=== PATIENT | male | born 1945 | race Caucasian/White ===

== ENCOUNTER 2019-09-08 07:27 | Emergency (ER) | payer MEDICARE ==
[~2019-09-08] VITALS: Ht 188 cm; Wt 82.5 kg
--- OUTSIDE RECORDS SUMMARY | ~2019-09-08 | XMS | Encounter Summary ---
Demographics + + + | Address | [address] | | | [place] [address] | + + + | Home Phone | | + + + | Preferred Language | Unknown | + + + | Marital Status | | + + + | Confucianism Affiliation | Unknown | + + + | Race | Unknown | + + + | Ethnic Group | Unknown | + + + Author + + + | Author | [facility] | | | and [place] | + + + | Organization | [facility] | | | and [place] | + + + | Address | Unknown | + + + | Phone | Unavailable | + + + Support + + +---------+ + | Name | Relationship | Address | Phone | + + +---------+ + | Mehnaz Cornelius | ECON | Unknown | | + + +---------+ + Care Team Providers + +------+ + | Care Parole Director Name | Role | Phone | + +------+ + | No, Physician | PCP | Unavailable | + +------+ + Reason for Visit Auth/Cert +--------+--------+ + + + + | Status | Reason | Specialty | Diagnoses / | Referred By | Referred To | | | | | Procedures | Contact | Contact | +--------+--------+ + + + + | | | | Diagnoses | | | | | | | Acute pain | | | | | | | Fall, | | | | | | | initial | | | | | | | encounter | | | | | | | Fracture of | | | | | | | left hip, | | | | | | | closed, | | | | | | | initial | | | | | | | encounter | | | | | | | ([facility]) Other | | | | | | | closed | | | | | | | fracture of | | | | | | | shaft of | | | | | | | left femur, | | | | | | | initial | | | | | | | encounter | | | | | | | ([facility]) | | | | | | | hip fracture | | | | | | | | | | | | | | Procedures | | | | | | | ORIF IM | | | | | | | RODDING | | | | | | | FEMORAL | | | | | | | TROCHANTERIC | | | | | | | NAIL | | | +--------+--------+ + + + + Encounter Details +--------+ + + + + | Date | Type | Department | Care Team | Description | +--------+ + + + + | 08/30/ | Anesthesia | [facility] | Pako Glasgow MD | | | 2016 | Event | [facility] | [address] | | | | | [address] | [place] | | | | | [place] | [address] | | | | | [address] | [phone] | | | | | [phone] | | | | | | | Krish Quispe MD | | | | | | [address] | | | | | | [place] | | | | | | [id number] | | | | | | | | +--------+ + + + + Anesthesia Record + + + + + | Procedure Name | Responsible | Anesthesia Start | Anesthesia Stop Time | | | Anesthesiologist | Time | | + + + + + | [facility] | Pako Glasgow MD | 08/30/16 0756 | 08/30/16 1034 | | FEMORAL TROCHANTERIC | | | | | NAIL LEFT (Left | | | | | Hip) | | | | + + + + + +----+---+ + + | Da | T | Event | Comment | | te | i | | | | | m | | | | | e | | | +----+---+ + + | 12 | 0 | | | | /1 | 7 | | | | 1/ | 5 | | | | 20 | 0 | | | | 16 | | | | +----+---+ + + | | 0 | An Checkout | Pre-use anesthesia machine/equipment checkout. | | | 7 | | | | | 5 | | | | | 6 | | | +----+---+ + + | | 0 | An Start | Reassessment prior to anesthesia induction/procedure. | | | 7 | | | | | 5 | | | | | 6 | | | +----+---+ + + | | 0 | Quick Note | To the OR with IV's in both anticubitals and right wrist. IV | | | 7 | | tubing changed to the right wrist | | | 5 | | | | | 8 | | | +----+---+ + + | | 0 | Antibiotic | | | | 7 | Given | | | | 5 | | | | | 9 | | | +----+---+ + + | | 0 | Preoxygenat | | | | 8 | ed | | | | 0 | | | | | 1 | | | +----+---+ + + | | 0 | An | | | | 8 | Induction | | | | 0 | | | | | 3 | | | +----+---+ + + | | 0 | An | | | | 8 | Intubation | | | | 0 | | | | | 4 | | | +----+---+ + + | | 0 | AN Bite | | | | 8 | Block | | | | 0 | | | | | 6 | | | +----+---+ + + | | 0 | First | | | | 8 | Inc/Proc St | | | | 2 | | | | | 5 | | | +----+---+ + + | | 0 | [place] | | | | 8 | 43-degrees | | | | 3 | | | | | 0 | | | +----+---+ + + | | 0 | Pre-Procedu | | | | 8 | ral Timeout | | | | 3 | Completed | | | | 0 | | | +----+---+ + + | | 1 | [place] off | | | | 0 | | | | | 2 | | | | | 1 | | | +----+---+ + + | | 1 | Breathing | | | | 0 | Spontaneous | | | | 2 | ly | | | | 4 | | | +----+---+ + + | | 1 | Extubated | | | | 0 | Awake | | | | 2 | | | | | 5 | | | +----+---+ + + | | 1 | an stop | | | | 0 | data | | | | 2 | | | | | 6 | | | +----+---+ + + | | 1 | An Stop | Patient handed off to recovery nurse. | | | 3 | | | | | 4 | | | +----+---+ + + +------+ | Meds | +------+ + + + | Name | Total | + + + | fentaNYL injection (2 mL) | 260 mcg | + + + | propofol (DIPRIVAN) injection | 120 mg | | (bolus) (20 mL) | | + + + | lidocaine 2% | 75 mg | + + + | Phenylephrine 100mcg/mL SYRINGE | 400 mcg | + + + | rocuronium | 45 mg | + + + | dexamethasone | 5 mg | + + + | ondansetron | 4 mg | + + + | LR (Infusion) | 1,550 mL | + + + + + | Name | + + | N2O Flow Rate (L/Min) | + + | O2 Flow Rate (L/Min) | + + | Insp O2 | + + | Exp SEV | + + | Air Flow Rate (L/Min) | + + + + | No blood administrations on file. | + + +--------+ + + + | Type | Details | Placement | Removal | +--------+ + + + | Periph | 08/29/16; 2018; yes; Right; | 08/29/16 2018 by | 09/01/16 1130 by | | eral | Antecubital; [id number] | Vero Rievra | Mehnaz Fajardo RN | | IV | catheter system; 18 gauge; no | TAYA Lares | | | | longer indicated, catheter/device | | | | | intact; healing within | | | | | expectations; 09/01/16; 1130 | | | +--------+ + + + | Periph | 08/29/16; 2028; yes; Left; | 08/29/162028 by | 08/30/16 1048 by Ion | | eral | Antecubital; [id number] | Vero Rivera | Scot Jasso RN | | IV | catheter system; 18 gauge; short | TAYA Lares | | | | term use; 08/30/16; 1048 | | | +--------+ + + + | Periph | 08/29/16; 2145; Right; Wrist; | 08/29/162145 by | 09/01/16 113 by | | katherine | [id number]-ifkuxo catheter system; | Vero Rivera | Mehnaz Fajardo RN | | IV | 20 gauge; distraction, tolerated | TAYA Lares | | | | well, topical anesthetic spray | | | | | applied; no longer indicated, | | | | | catheter/device intact; healing | | | | | within expectations; 09/01/16; | | | | | 1130 | | | +--------+ + + + | Airway | Placement Date: 08/30/16; | 08/30/16803 by | 08/30/16 102 by | | | Placement Time: 803 (created via | Krish Quispe MD | Pako Glasgow MD | | | procedure documentation); Mask | | | | | Ventilation: EZ; Attempts: 1; | | | | | Airway Type: laryngeal mask; | | | | | Size: 4; Trauma: none; Placement | | | | | Check: exhaled CO2 detection | | | | | device, bilateral chest rise; | | | | | Removal Date: 08/30/16; Removal | | | | | Time: 1025 | | | +--------+ + + + | Read | 08/30/16; 0857; Left; hip; | 08/30/16 0857 by | 09/01/16 1130 by | | only - | healing within expectations; | Storm Braun RN | Mehnaz Fajardo RN | | | 09/01/16; 1130 | | | | Incisi | | | | | on | | | | +--------+ + + + | Urethr | 08/30/16; 1020; indicated due to | 08/30/16 1020 by | 08/31/16 0601 by | | al | specific surgical procedure; All | Storm Braun RN | Gale Clifton, | | Cathet | elements; All elements; All | | RN | | er | elements; indwelling double lumen | | | | | catheter; 100% silicone; 14; | | | | | None; 1; 10; 10; urethral | | | | | catheter removed, per | | | | | protocol/policy; 08/31/16; 0601 | | | +--------+ + + + documented in this encounter Social History + +-------+ +--------+------+ | Tobacco Use | Types | Packs/Day | Years | Date | | | | | Used | | + +-------+ +--------+------+ | Current Every Day | | | | | | Smoker | | | | | + +-------+ +--------+------+ + +---+---+---+ | Smokeless Tobacco: | | | | | Never Used | | | | + +---+---+---+ + + +---------+ + | Alcohol Use | Drinks/Week | oz/Week | Comments | + + +---------+ + | No | | | | + + +---------+ + + + + | Sex Assigned at | Date Recorded | | | | + + + | Not on file | | + + + + + + + | Job Start Date | Occupation | Industry | + + + + | Not on file | Not on file | Not on file | + + + + + + + + | Travel History | Travel Start | Travel End | + + + + + + | No recent travel history available. | + + documented as of this encounter Plan of Treatment Not on filedocumented as of this encounter Procedures + +--------+ + + + | Procedure Name | Priori | Date/Time | Associated Diagnosis | Comments | | | ty | | | | + +--------+ + + + | ANE AIRWAY NOTE | Routin | 08/30/2016 | | Results for this | | | e | 8:25 AM | | procedure are in the | | | | PST | | results section. | + +--------+ + + + documented in this encounter Results Anesthesia Airway Note (08/30/2016 8:25 AM PST) + + + | Narrative | Performed At | + + + | Krish Quispe MD 08/30/2016 8:25 Anesthesia Airway | | | Placement 08/30/2016 8:04 Preprocedure check: patient identified, | | | suction, oxygen, airway equipment checked and airway assessed | | | Rapid Sequence Induction: no Mask ventilation: easy Attempts: 1 | | | Airway type: laryngeal mask Size: 4 Cuffed: cuffed Route, reference | | | point: center of mouth Trauma: none Tube placement verification: | | | bilateral chest rise and carbon dioxide detection Performing | | | provider: KRISH QUISPE Electronically Signed by: Krish Ellison. | | | MD Jose Enrique ESig date/time: | | | 08/30/2016 8:24 | | + + + documented in this encounter Visit Diagnoses Not on filedocumented in this encounter Administered Medications + +--------+ +------+------+------+ | Medication Order | MAR | Action | Dose | Rate | Site | | | Action | Date | | | | + +--------+ +------+------+------+ | dexamethasone (DECADRON) 10 | Given | 08/30/20 | 5 mg | | | | mg/mL injection Intravenous, | | 16 8:37 | | | | | PRN, Starting 08/30/16 at | | AM PST | | | | | 0837, Anesthesia Intra-op | | | | | | + +--------+ +------+------+------+ +---+---+ | | | +---+---+ + +-------+ +--------+---+---+ | fentaNYL (PF) injection | Given | 08/30/20 | 30 mcg | | | | Intravenous, PRN, Pain, Starting | | 16 10:16 | | | | | 08/30/16 at 0800, Anesthesia | | AM PST | | | | | Intra-op | | | | | | + +-------+ +--------+---+---+ +-------+ +--------+---+---+ | Given | 08/30/20 | 30 mcg | | | | | 16 10:10 | | | | | | AM PST | | | | +-------+ +--------+---+---+ | Given | 08/30/20 | 30 mcg | | | | | 16 9:21 | | | | | | AM PST | | | | +-------+ +--------+---+---+ +---+---+ | | | +---+---+ + +---------+ +---+---+---+ | lactated ringers (LR) infusion | New Bag | 08/30/20 | | | | | Intravenous, CONTINUOUS PRN, | | 16 9:24 | | | | | Starting 08/30/16 at 0737, | | AM PST | | | | | Anesthesia Intra-op | | | | | | + +---------+ +---+---+---+ +---------+ +---+---+---+ | New Bag | 08/30/20 | | | | | | 16 7:37 | | | | | | AM PST | | | | +---------+ +---+---+---+ +---+---+ | | | +---+---+ + +-------+ +-------+---+---+ | lidocaine (PF) 2% injection | Given | 08/30/20 | 75 mg | | | | Intravenous, PRN, Starting Sun | | 16 8:03 | | | | | 08/30/16 at 0803, Anesthesia | | AM PST | | | | | Intra-op | | | | | | + +-------+ +-------+---+---+ +---+---+ | | | +---+---+ + +-------+ +------+---+---+ | ondansetron (ZOFRAN) injection | Given | 08/30/20 | 4 mg | | | | Intravenous, PRN, Nausea, | | 16 8:37 | | | | | Vomiting, Starting 08/30/16 | | AM PST | | | | | at 0837, Anesthesia Intra-op | | | | | | + +-------+ +------+---+---+ +---+---+ | | | +---+---+ + +-------+ +---------+---+---+ | phenylephrine (ORLY-SYNEPHRINE) | Given | 08/30/20 | 200 mcg | | | | 100 mcg/mL injection | | 16 8:26 | | | | | Intravenous, PRN, Starting Sun | | AM PST | | | | | 08/30/16 at 0820, Anesthesia | | | | | | | Intra-op | | | | | | + +-------+ +---------+---+---+ +-------+ +---------+---+---+ | Given | 08/30/20 | 100 mcg | | | | | 16 8:20 | | | | | | AM PST | | | | +-------+ +---------+---+---+ | Given | 08/30/20 | 100 mcg | | | | | 16 8:13 | | | | | | AM PST | | | | +-------+ +---------+---+---+ +---+---+ | | | +---+---+ + +-------+ +--------+---+---+ | propofol (DIPRIVAN) injection | Given | 08/30/20 | 120 mg | | | | Intravenous, PRN, Starting Sun | | 16 8:03 | | | | | 08/30/16 at 0803, Anesthesia | | AM PST | | | | | Intra-op | | | | | | + +-------+ +--------+---+---+ +---+---+ | | | +---+---+ + +-------+ +------+---+---+ | rocuronium (ZEMURON) injection | Given | 08/30/20 | 5 mg | | | | Intravenous, PRN, Starting Sun | | 16 9:00 | | | | | 08/30/16 at 0821, Anesthesia | | AM PST | | | | | Intra-op | | | | | | + +-------+ +------+---+---+ +-------+ +-------+---+---+ | Given | 08/30/20 | 10 mg | | | | | 16 8:41 | | | | | | AM PST | | | | +-------+ +-------+---+---+ | Given | 08/30/20 | 30 mg | | | | | 16 8:21 | | | | | | AM PST | | | | +-------+ +-------+---+---+ +---+---+ | | | +---+---+ documented in this encounter"
--- OUTSIDE RECORDS SUMMARY | ~2019-09-08 | XMS | Clinical Summary ---
Demographics + + + | Address | [address] | | | [place] [address] | + + + | Home Phone | | + + + | Preferred Language | Unknown | + + + | Marital Status | | + + + | Jain Affiliation | Unknown | + + + | Race | Unknown | + + + | Ethnic Group | Unknown | + + + Author + + + | Author | [facility] | | | and [place] | + + + | Organization | [facility] | | | and [...] Team Providers + +------+ + | Care Web Editor Name | Role | Phone | + +------+ + | No, Physician | PCP | Unavailable | + +------+ + Allergies No Known Allergies Medications + + + +---------+------+------+-------+ | Medication | Sig | Dispensed | Refills | Star | End | Statu | | | | | | t | Date | s | | | | | | Date | | | + + + +---------+------+------+-------+ | | Take 25 mg by mouth | | 0 | | | Activ | | hydroCHLOROthiazide | Daily. | | | | | e | | 25 mg tablet | | | | | | | + + + +---------+------+------+-------+ | oxyCODONE | Take 1-2 tablets by | 60 | 0 | 12/1 | | Activ | | (ROXICODONE) 5 mg | mouth every 3 hours | tablet | | 3/20 | | e | | tablet | as needed for Pain. | | | 16 | | | + + + +---------+------+------+-------+ | aspirin 325 mg | Take 1 tablet by | 30 | 0 | 12/1 | | Activ | | tablet | mouth Daily. | tablet | | 3/20 | | e | | | | | | 16 | | | + + + +---------+------+------+-------+ Active Problems No known active problems Social History + +-------+ +--------+------+ | Tobacco [...] recent travel history available. | + + Last Filed Vital Signs + + + + + | Vital Sign | Reading | Time Taken | Comments | + + + + + | Blood Pressure | 130/72 | 09/01/2016 7:47 AM | | | | | PST | | + + + + + | Pulse | 78 | 09/01/2016 8:25 AM | | | | | PST | | + + + + + | Temperature | 37.5 C (99.5 F) | 09/01/2016 7:47 AM | | | | | PST | | + + + + + | Respiratory Rate | 16 | 09/01/2016 7:47 AM | | | | | PST | | + + + + + | Oxygen Saturation | 96% | 09/01/2016 8:25 AM | | | | | PST | | + + + + + | Inhaled Oxygen | - | - | | | Concentration | | | | + + + + + | Weight | 84 kg (185 lb 3 oz) | 08/29/2016 10:15 PM | | | | | PST | | + + + + + | Height | 182.9 cm (6') | 08/29/2016 8:16 PM | | | | | PST | | + + + + + | Body Mass Index | 25.12 | 08/29/2016 8:16 PM | | | | | PST | | + + + + + Plan of Treatment + + + + + | Health Maintenance | Due Date | Last Done | Comments | + + + + + | Vaccine: | | | | | Dtap/Tdap/Td (1 - | 5 | | | | Tdap) | | | | + + + + + | Vaccine: Zoster (1 | | | | | of 2) | 6 | | | + + + + + | Vaccine: | | | | | Pneumococcal 65+ (1 | 1 | | | | of 2 - PCV13) | | | | + + + + + | Vaccine: Influenza | | | | | (#1) | 9 | | | + + + + + Implants + +-------+--------+ +--------+--------+--------+ | Implanted | Type | Area | Manufacture | Device | Shelf | Model | | | | | r | | Expira | / | | | | | | Identi | tion | Serial | | | | | | fier | Date | / Lot | + +-------+--------+ +--------+--------+--------+ | Screw Im Emma Slf-Tp F/T | Screw | Left: | JJHCS DEPUY | | | 04.005 | | [id number] - [id number]: | | Hip | SYNTHES - | | | .532 / | | Qty: 1 on 08/30/2016 by | | | SYNT | | | / | | Tree Freitas DO at [facility] | | | | | | | | [facility] | | | | | | | | [facility] | | | | | | | + +-------+--------+ +--------+--------+--------+ | Nail Fem Tfna St 130d [id number] | | Left: | JJHCS DEPUY | | 07/20/ | 04.037 | | L - [id number]: Qty: | | Hip | SYNTHES - | | 2025 | .[id number] | | 1 on 08/30/2016 by Zena, | | | SYNT | | | / | | Tree Rivera DO at [facility] | | | | | | /[id number] | | [facility] | | | | | | 20 | | CENTER | | | | | | | + +-------+--------+ +--------+--------+--------+ | Imp Blade Hlcl Tfna 110mm | | Left: | JJHCS DEPUY | | 03/19/ | 04.038 | | Strl - [id number]: | | Hip | SYNTHES - | | 2025 | .[id number] | | Qty: 1 on 08/30/2016 by | | | SYNT | | | / | | Tree Freitas DO at [facility] | | | | | | /[id number] | | [place] | | | | | | [address] | | [facility] | | | | | | | + +-------+--------+ +--------+--------+--------+ Results Not on filefrom Last 3 Months Insurance + +--------+ +--------+ +---------+--------+ | Payer | Benefi | Subscriber | Effect | Phone | Address | Type | | | t Plan | ID | jerald | | | | | | / | | Dates | | | | | | Group | | | | | | + +--------+ +--------+ +---------+--------+ | MEDICARE | MEDICA | [id number] | 04/20/20 | [phone] | | Medica | | | RE | | 11-Pre | 5 | | re | | | PART A | | sent | | | | | | AND B | | | | | | + +--------+ +--------+ +---------+--------+ + +--------+ +--------+ + + | Guarantor Name | Accoun | Relation to | Date | Phone | Billing Address | | | t Type | Patient | of | | | | | | | | | | + +--------+ +--------+ + + | Krish Cornelius | Person | Self [birth year] [address] | | | al/Kvng | | 1945 | [phone] | [place] | | | [place] | | | [address] (Home) | [id number] | + +--------+ +--------+ + + Advance Directives + + + + + | Type | Date Recorded | Patient | Explanation | | | | Air Conditioning Mechanic | | + + + + + | Power of | | | | | Investigative Analyst | | | | + + + + + | Advance | 08/30/2016 | | | | Directive | 6:14 PM | | | + + + + + + + + + + | Code Status | Date | Date | Comments | | | Activated | Inactivated | | + + + + + | Full Code | 08/30/2016 | 09/01/2016 | | | | 1:45 PM | 2:53 PM | | + + + + +"
--- OUTSIDE RECORDS SUMMARY | ~2019-09-08 | XMS | Encounter Summary ---
Demographics + + + | Address | [address] | | | [place] [address] | + + + | Home Phone | | + + + | Preferred Language | Unknown | + + + | Marital Status | | + + + | Temple Affiliation | Unknown | + + + | Race | Unknown | + + + | Ethnic Group | Unknown | + + + Author + + + | Author | [facility] | | | and [place] | + + + | Organization | [facility] | | | [...] Team Providers + +------+ + | Care Loss Control Engineer Name | Role | Phone | + +------+ + | No, Physician | PCP | Unavailable | + +------+ + Reason for Visit + + + | Reason | Comments | + + + | Hip Injury | | + + + Auth/Cert +--------+--------+ + + + + | [...] | | | | | | (HCC) Other | | | | | | [...] +--------+--------+ + + + + Encounter Details +--------+---------+ + + + | Date | Type | Department | Care Team | Description | +--------+---------+ + + + | 08/30/ | Surgery | [facility] | Tree Freitas | ORIF IM R[facility]DING | | 2016 | | [facility] | J, DO [address] | FEMORAL TROCHANTERIC | | | | [address] [place], [place] | NAIL LEFT | | | | [place], [place] | [address] | | | | | [address] | [phone] | | | | | [phone] | | | +--------+---------+ + + + Social History + +-------+ +--------+------+ | Tobacco [...] + + documented as of this encounter Last Filed Vital Signs + + + [...] | | + + + + + documented in this encounter Discharge Summaries Tree Freitas DO - 09/01/2016 7:49 AM PST Physician Discharge Summary Patient ID: Krish Cornelius [id number] 71 y.o. 1945 Admit date: 08/29/2016 Discharge date and time: No discharge date for patient encounter. Admitting Physician: Tree Freitas DO Discharge Physician: same Admission Diagnoses: Acute pain [R52] Fall, initial encounter [W19.XXXA] Fracture of left hip, closed, initial encounter ([facility]) [S72.002A] Other closed fracture of shaft of left femur, initial encounter ([facility]) [S72.392A] Discharge Diagnoses: subtrochanteric fracture left femur Admission Condition: poor Discharged Condition: stable Indication for Admission: femur fracture Hospital Course: ORIF femur, pain meds, PT,, CPM, IV abx for 38 hours Consults: none Significant Diagnostic Studies: labs: No results found for this or any previous visit (from the past 24 hour(s)). . Treatments: IV hydration, antibiotics: Ancef, analgesia: Vicodin and Morphine and surgery: ORIF femur Discharge Exam: BP 130/72 mmHg | Pulse 72 | Temp(Src) 37.5 C (99.5 F) (Oral) | Resp 16 | Ht 1.829 m (6' ) | Wt 84 kg (185 lb 3 oz) | BMI 25.11 kg/m2 | SpO2 94% General appearance: alert, cooperative and no distress Lungs: clear to auscultation bilaterally Extremities: edema consistent with surgical limb Pulses: 2+ and symmetric Skin: incisions healing well Neurologic: Grossly normal Disposition: home Patient Instructions: Discharge Medications New Medications Details aspirin 325 mg tablet Replaces: aspirin 81 mg EC tablet Take 1 tablet by mouth Daily. oxyCODONE 5 mg tablet Take 1-2 tablets by mouth every 3 hours as needed for Pain. aka: ROXICODONE Unchanged Medications Details hydroCHLOROthiazide 25 mg tablet Take 25 mg by mouth Daily. Discontinued Medications aspirin 81 mg EC tablet Replaced by: aspirin 325 mg tablet Activity: ambulate in house, no heavy lifting, pushing, pulling with the implant side for 2 months and no driving while on analgesics Diet: regular diet Wound Care: keep wound clean and dry, reinforce dressing PRN and ice to area for comfort Follow-up with DR. Freitas in 10 days. See primary doctor within two weeks Signed: Tree Freitas DO 09/01/2016 7:49 documented in this encounter Discharge Instructions Instructions Tree Freitas DO - 09/01/2016 Discharge Instructions for Hip Fracture Surgery You had surgery to repair a hip fracture.The type of surgery youreceived depends on the location and severity of the fracture. You may havepins, screws, or rods (internal fixati on devices) holding the fractured bone in place. Or, some or all of your hip may have been r eplaced. You must take care of your new hip as you recover at home or in a rehabilitation fa cility. This means moving and sitting the way you were taught in the hospital. You must also see your doctor for follow-up visits as you slowly return to activity.Hip repair for fr acture or hip replacement is major surgery. So don t be surprised if it takes a few months before you can move comfortably. Plan to have your family and friends help when you return home. Home care Take your pain medicine exactly as directed. Don t drive until your doctor says it s OK. And never drive if you are taking opioid pain medicine. Wear the support stockings you were given in the hospital. Wear [id number] day f or3 to 4week(s). Make arrangements to have your raoul [id number] after surgery. The raoul were used to close the skin incision. Get up and carefully move around to relieve pain. If you received an artificial hip joint, tell all your healthcare providers including your dentist about the joint before any procedure. Youmay need to take antibiotics befor e dental work and other medical procedures to reduce the risk of infection. Incision care Avoid infection by washing your hands often. If an infection occurs, it will need to be treated with antibiotics immediately. So call your doctorright away if you think you may h ave an infection. Symptoms of infection include a fever or leakage of white, greenish, or ye llowish-colored fluid from the incision. Check your incision daily for redness, tenderness, or drainage. Avoid soaking your wound in water (no hot tubs, bathtubs, swimming pools) until your doc tor says it s OK. Kizq1rnj(s) after your surgery to begin showering. Then shower as needed. Carefully wash your incision with soap and water. Gently pat it dry. Don t rub the incision, or appl y creams or lotions. And sit on a shower stool when you shower to keep from falling. Sitting and sleeping Don t sit for more than30 to 45minutes at a time. Use chairs with arms, and sit with your knees slightly lower than your hips. Don t sit on low or sagging chairs or couches. Don t lean forward while sitting. Don t cross your legs. Keep your feet flat on the floor. Don t turn your foot or leg inward. This stresses yo ur hip joint. Use an elevated toilet seat [id number](s)after surgery. Use pillows between your legs when sleeping on your back or on your healthy side. Sit on a firm cushion when you ride in a car and avoid sitting too low. Try not to bend your hip too much when getting in and out of the car. Moving safely Don t bend at the hip when you bend over. Don t bend at the waist to put on socks an d shoes. And avoid picking up items from the floor. Use a cane, crutches, a walker, or handrails until your balance, flexibility, and streng th improve. And remember to ask for help from others when you need it. Free up your hands so that you can use them to keep balance. Use a sigifredo pack, apron, or pockets to carry things. Follow your doctor s orders regarding how much weight to place on the affected leg. Do all exercises as instructed. Arrange your household to keep the items you need within reach. Remove electrical cords, throw rugs,and anything else that may cause you to fall. Use nonslip bath mats, grab bars, an elevated toilet seat, and a shower chair in your ba throom. Follow-up Make a follow-up appointment as directed by your doctor. When to seek medical attention Call 911 right awayif you have any of the following: Chest pain Shortness of breath Otherwise, call your doctor right away if you have any of the following: Increased hip pain Pain or swelling of your calf or leg Fever [id number] (38.0C) or shaking chills Excessive swelling, increased redness, or any drainage from the incision Swelling, tenderness, or cramps in your leg [phone] [employer]. [address] [place] [address]. All righ ts reserved. This information is not intended as a substitute for professional medical care. Always follow your healthcare professional's instructions. documented in this encounter Medications at Time of Discharge + + + +---------+ + + | Medication | Sig | Dispensed | Refills | Start | End Date | | | | | | Date | | + + + +---------+ + + | aspirin 325 mg | Take 1 tablet by | 30 | 0 | 09/01/20 | | | tablet | mouth Daily. | tablet | | 16 | | + + + +---------+ + + | | Take 25 mg by mouth | | 0 | | | | hydroCHLOROthiazide | Daily. | | | | | | 25 mg tablet | | | | | | + + + +---------+ + + | oxyCODONE | Take 1-2 tablets by | 60 | 0 | 09/01/20 | | | (ROXICODONE) 5 mg | mouth every 3 hours | tablet | | 16 | | | tablet | as needed for Pain. | | | | | + + + +---------+ + + documented as of this encounter Progress Notes Dottie Milan PA-C - 08/31/2016 12:26 PM PSTFormatting of this note might be diffe rent from the original. Subjective: Post-Operative Day: 1 Day Post-Op Status Post ORIF of left subtrochanteric hip fracture with TFNA Systemic or Specific Complaints:No Complaints and pain controlled. He is motivated to vonda very and would like to be ready to go home Wednesday. Objective: Patient Vitals for the past 24 hrs: BP Temp Temp src Pulse Resp SpO2 08/31/16 0759 104/64 mmHg 36.8 C (98.2 F) Oral 69 - 91 % 08/31/16 0500 109/66 mmHg 37.5 C (99.5 F) Oral 66 20 99 % 08/30/16 2337 106/60 mmHg 37.5 C (99.5 F) Oral 69 20 96 % 08/30/162015 113/66 mmHg 37.7 C (99.9 F) Oral 77 18 99 % 08/30/16 1550 108/69 mmHg 37.8 C (100 F) Oral 83 18 96 % 08/30/16 1440 108/72 mmHg - - 78 18 95 % 08/30/16 1410 - - - 87 - 94 % 08/30/16 1340 105/68 mmHg - - 75 18 96 % 08/30/16 1240 99/66 mmHg - - 76 18 93 % I/O last 24 Hours: In: 4807 [P.O.:2080; I.V.:2727] Out: 2225 [Urine:1825; Blood:400] General: Alert and oriented, no distress Wound: Dressing with moderate bleeding otherwise dry and intact. Operative limb: Circulation: warm, well perfused, No evidence of DVT seen on physical exam. CMS: Neuro : sensation intact to dorsal and plantar left foot, 5/5 EHL and tibialis anterio r. Data Review Recent Results (from the past 24 hour(s)) Hemoglobin and Hematocrit Result Value Ref Range Hgb 10.7 (L) 13.5-18.0 g/dL Hct 31.3 (L) 40.0-51.0 % Extra Green Top Tube Result Value Ref Range Extra Green Top Tube Done Assessment: Status Post TFNA for left subtrochanteric hip fracture Expected acute blood loss anemia Doing well Plan: Continue current postoperative course Anemia protocol PT and OT No change to activity restrictions Lovenox for DVT prophylaxis Home Wednesday, possibly tomorrow Fauzia Martins, PharmD - 08/29/2016 9:07 PM PSTFormatting of this note might be different from the orig inal. PHARMACY SERVICES: ADMISSION MEDICATION REVIEW Krish Cornelius is a 71 y.o. male admitted on 08/29/2016. Patient is nota reliable historian. Location of Patient when reviewed: [x] ED [] Medical Floor Patient s prior to admit medication and over the counter (OTC) medications/herbal supplem ents list obtained from: [x] Verbal interview (patient is able to recall drug name, strength, frequency, etc.) [x] Patient/family member provided a complete current medication list or bottles [] MAR from SNF facility: [] Doctor's office: [] Pharmacy list names: [] [employer] insurance reported information [] Care Everywhere [] Other sources: Vaccines up to date? Yes No Unsure Influenza [] [x] [] Pneumococcal [] [x] [] Tdap [x] [] [] Shingles [] [x] [] Noted medications discrepancies or medication-related issues: Medication added: Medication: Prior to Admission Sig: Hydrochlorothiazide 25 mg 1 tab daily Removed therapy: Medication: Reason for Removal: Amlodipine PO Patient not taking this medication Medication review performed and electronically signed by Wood Fernandes Supervisor Dock 08/29 21:02 Reviewed by Fauzia Marin PHARMD 08/29/2016 21:06 documented in thi s encounter Plan of Treatment Not on filedocumented as of this encounter Procedures + +--------+ + + + | Procedure Name | Priori | Date/Time | Associated Diagnosis | Comments | | | ty | | | | + +--------+ + + + | EXTRA GREEN TOP TUBE | Routin | 08/31/2016 | | Results for this | | | e | 5:53 AM | | procedure are in the | | | | PST | | results section. | + +--------+ + + + | HEMOGLOBIN AND | Routin | 08/31/2016 | | Results for this | | HEMATOCRIT | e | 5:53 AM | | procedure are in the | | | | PST | | results section. | + +--------+ + + + | XR HIP LEFT 2-3 | Routin | 08/30/2016 | | Results for this | | VIEWS | e | 10:24 AM | | procedure are in the | | | | PST | | results section. | + +--------+ + + + | FL BERNARDA STATS NO | Routin | 08/30/2016 | | Results for this | | CHARGE | e | 10:23 AM | | procedure are in the | | | | PST | | results section. | + +--------+ + + + | ORIF IM RODDING | | 08/30/2016 | Fracture of left | | | FEMORAL TROCHANTERIC | | 7:40 AM | hip, closed, initial | | | NAIL | | PST | encounter (HCC) | | + +--------+ + + + | ECG 12 LEAD | STAT | 08/29/2016 | | Results for this | | | | 8:24 PM | | procedure are in the | | | | PST | | results section. | + +--------+ + + + | PROTIME INR | STAT | 08/29/2016 | | Results for this | | | | 8:21 PM | | procedure are in the | | | | PST | | results section. | + +--------+ + + + | CBC WITH | STAT | 08/29/2016 | | Results for this | | DIFFERENTIAL | | 8:21 PM | | procedure are in the | | | | PST | | results section. | + +--------+ + + + | COMPREHENSIVE | STAT | 08/29/2016 | | Results for this | | METABOLIC PANEL | | 8:21 PM | | procedure are in the | | | | PST | | results section. | + +--------+ + + + | IMAGING REPORT - | | 08/29/2016 | | Results for this | | EXTERNAL SCAN | | 12:00 AM | | procedure are in the | | | | PST | | results section. | + +--------+ + + + | IMAGING REPORT - | | 08/29/2016 | | Results for this | | EXTERNAL SCAN | | 12:00 AM | | procedure are in the | | | | PST | | results section. | + +--------+ + + + | LABS - EXTERNAL SCAN | | 08/29/2016 | | Results for this | | | | 12:00 AM | | procedure are in the | | | | PST | | results section. | + +--------+ + + + | ECG - EXTERNAL SCAN | | 08/29/2016 | | Results for this | | | | 12:00 AM | | procedure are in the | | | | PST | | results section. | + +--------+ + + + documented in this encounter Results Extra Green Top Tube (08/31/2016 5:53 AM PST) + +-------+ + + + | Component | Value | Ref Range | Performed | Pathologist | | | | | At | Signature | + +-------+ + + + | Extra Green | Done | | [facility] | | | Top Tube | | | [facility] | | | | | | [facility] | | | | | | C[facility] - | | | | | | LABORATORY | | + +-------+ + + + + + | Specimen | + + | Blood | + + + + + + + | Performing | Address | City/State/Zipcode | Phone Number | | Organization | | | | + + + + + | [facility] | [address] | [place] | [phone] | | [facility] | | [address] | | | - LABORATORY | | | | + + + + + Hemoglobin and Hematocrit (08/31/2016 5:53 AM PST) + + + + + + | Component | Value | Ref Range | Performed | Pathologist | | | | | At | Signature | + + + + + + | Hemoglobin | 10.7 (L) | 13.5 - 18.0 | [facility] | | | | | g/dL | [facility] | | | | | | [facility]ICAL | | | | | | CENTER - | | | | | | LABORATORY | | + + + + + + | Hematocrit | 31.3 (L) | 40.0 - 51.0 % | [facility] | | | | | | [facility] | | | | | | MEDICAL | | | | | | CENTER - | | | | | | LABORATORY | | + + + + + + + + | Specimen | + + | Blood | + + + + + + + | Performing | Address | City/State/Zipcode | Phone Number | | Organization | | | | + + + + + | [facility] | [address] | [place], [place] | [phone] | | [facility] | | [address] | | | - LABORATORY | | | | + + + + + XR Hip Left 2-3 Views (08/30/2016 10:24 AM PST) + + | Specimen | + + | | + + + + + | Narrative | Performed At | + + + | EXAM:XR HIP LEFT 2-3 VIEWS CLINICAL HISTORY: intra op | | | COMPARISON: None. FINDINGS/IMPRESSION -Intraoperative fluoroscopic | | | images are acquired following placement of a long stem antegrade | | | intramedullary kar in the femur and a femoral nail. These are | | | transfixing a comminuted displaced intratrochanteric fracture. There | | | is an intact distal locking screw. Please see postoperative imaging | | | for final alignment and assessment. Dictated and Signed by: | | | Romero Colindres MD Electronically signed: 08/30/2016 10:59 AM | | + + + + + | Procedure Note | + + | Al, Rad Results In - 08/30/2016 11:02 AM PST EXAM:XR HIP LEFT 2-3 VIEWS | | | | CLINICAL HISTORY: intra op | | | | COMPARISON: None. | | | | FINDINGS/IMPRESSION -Intraoperative fluoroscopic images are acquired following | | placement of a long stem antegrade intramedullary kar in the femur and a femoral | | nail. These are transfixing a comminuted displaced intratrochanteric fracture. | | There is an intact distal locking screw. Please see postoperative imaging for | | final alignment and assessment. | | | | | | Dictated and Signed by: Romero Colindres MD | | Electronically signed: 08/30/2016 10:59 AM | + + FL C-Arm Stats No Charge (08/30/2016 10:23 AM PST) + + | Specimen | + + | | + + + + + | Narrative | Performed At | + + + | No Radiologist interpretation, please see Chart Review. | [facility] | + + + + +---------+ + + | Performing | Address | City/State/Zipcode | Phone Number | | Organization | | | | + +---------+ + + | [facility] | | | | + +---------+ + + ECG 12 lead (08/29/2016 8:24 PM PST) + + + + + + | Component | Value | Ref Range | Performed | Pathologist | | | | | At | Signature | + + + + + + | VENTRICULAR | 76 | BPM | [facility] | | | RATE EKG | | | | | + + + + + + | ATRIAL RATE | 76 | BPM | [facility] | | + + + + + + | P-R | 178 | ms | [facility] | | | INTERVAL | | | | | + + + + + + | QRS | 104 | ms | [facility] | | | DURATION | | | | | + + + + + + | Q-T | 402 | ms | [facility] | | | INTERVAL | | | | | + + + + + + | Q-T | 452 | ms | [facility] | | | INTERVAL | | | | | | (CORRECTED) | | | | | + + + + + + | P WAVE AXIS | 20 | degrees | [facility] | | + + + + + + | QRS AXIS | -54 | degrees | [facility] | | + + + + + + | T AXIS | 52 | degrees | [facility] | | + + + + + + | INTERPRETAT | Normal sinus rhythmLeft | | [facility] | | | ION TEXT | anterior fascicular | | | | | | blockAbnormal ECGNo | | | | | | previous ECGs | | | | | | availableConfirmed by | | | | | | COTY HOOPER MD ([id number]) | | | | | | on 08/30/2016 10:14:19 | | | | | | AM | | | | + + + + + + + + | Specimen | + + | | + + + + + | Narrative | Performed At | + + + | | | + + + + +---------+ + + | Performing | Address | City/State/Zipcode | Phone Number | | Organization | | | | + +---------+ + + | [facility] | | | | + +---------+ + + Protime INR (08/29/2016 8:21 PM PST) + + + + + + | Component | Value | Ref Range | Performed | Pathologist | | | | | At | Signature | + + + + + + | Prothrombin | 14.3 (H) | 11.3 - 13.9 | [facility] | | | Time | | seconds | [facility] | | | | | | MEDICAL | | | | | | CENTER - | | | | | | LABORATORY | | + + + + + + | INR | 1.09Comment: Usual Oral | 0.90 - 1.10 | [facility] | | | | Anticoagulation Range: | | [facility] | | | | 2.0 - 3.0High | | MEDICAL | | | | Level Oral | | CENTER - | | | | Anticoagulation Range: | | LABORATORY | | | | 2.5 - 3.5 | | | | + + + + + + + + | Specimen | + + | Blood | + + + + + + + | Performing | Address | City/State/Zipcode | Phone Number | | Organization | | | | + + + + + | [facility] | [address] | [place] | [phone] | | [facility] | | [address] | | | - LABORATORY | | | | + + + + + Comprehensive Metabolic Panel (08/29/2016 8:21 PM PST) + + + + + + | Component | Value | Ref Range | Performed | Pathologist | | | | | At | Signature | + + + + + + | Na | 139 | 136 - 149 | [facility] | | | | | mmol/L | [facility] | | | | | | MEDICAL | | | | | | CENTER - | | | | | | LABORATORY | | + + + + + + | K | 3.6 | 3.5 - 5.1 | [facility] | | | | | mmol/L | [facility] | | | | | | MEDICAL | | | | | | CENTER - | | | | | | LABORATORY | | + + + + + + | Cl | 104 | 98 - 109 mmol/L | [facility] | | | | | | [facility] | | | | | | MEDICAL | | | | | | CENTER - | | | | | | LABORATORY | | + + + + + + | CO2 | 25 | 24 - 31 mmol/L | [facility] | | | | | | [facility] | | | | | | MEDICAL | | | | | | CENTER - | | | | | | LABORATORY | | + + + + + + | Anion Gap | 10 | 3 - 16 mmol/L | [facility] | | | | | | [facility] | | | | | | [facility] | | | | | | CENTER - | | | | | | LABORATORY | | + + + + + + | Glucose | 120 (H) | 70 - 109 mg/dL | [facility] | | | | | | [facility] | | | | | | MEDICAL | | | | | | CENTER - | | | | | | LABORATORY | | + + + + + + | BUN | 11 | 7 - 18 mg/dL | [facility] | | | | | | [facility] | | | | | | [facility]ICAL | | | | | | CENTER - | | | | | | LABORATORY | | + + + + + + | Creatinine | 1.11 | 0.60 - 1.30 | [facility] | | | | | mg/dL | [facility] | | | | | | MEDICAL | | | | | | CENTER - | | | | | | LABORATORY | | + + + + + + | eGFR if not | >60Comment: GLOMERULAR | >=60 | [facility] | | | | FILTRATION | mL/min/1.73m2 | [facility] | | | EQUATORIAL GUINEAN | RATE,ESTIMATED | | MEDICAL | | | | mL/min/1.22z4Ihtq than | | CENTER - | | | | 60 Chronic kidney | | LABORATORY | | | | disease,if found over a | | | | | | 3-month period.Less than | | | | | | 15 Kidney failureFor | | | | | | | | | | | | Americans,multiply the | | | | | | calculated GFR by 1.21. | | | | | | | | | | + + + + + + | Calcium | 8.5 | 8.3 - 10.5 | [facility] | | | | | mg/dL | [facility] | | | | | | MEDICAL | | | | | | CENTER - | | | | | | LABORATORY | | + + + + + + | Albumin | 3.7 | 3.2 - 5.0 g/dL | [facility] | | | | | | [facility] | | | | | | MEDICAL | | | | | | CENTER - | | | | | | LABORATORY | | + + + + + + | Bilirubin | 1.2Comment: This is an | 0.1 - 1.5 mg/dL | [facility] | | | Total | appended report. These | | [facility] | | | | results have been | | MEDICAL | | | | appended to a previously | | CENTER - | | | | preliminary verified | | LABORATORY | | | | report. | | | | + + + + + + | Total | 6.2 | 6.0 - 7.8 g/dL | [facility] | | | Protein | | | [facility] | | | | | | MEDICAL | | | | | | CENTER - | | | | | | LABORATORY | | + + + + + + | AST | 23Comment: This is an | 10 - 42 U/L | [facility] | | | | appended report. These | | [facility] | | | | results have been | | MEDICAL | | | | appended to a previously | | CENTER - | | | | preliminary verified | | LABORATORY | | | | report. | | | | + + + + + + | ALT | 23Comment: This is an | 6 - 45 U/L | [facility] | | | | appended report. These | | [facility] | | | | results have been | | MEDICAL | | | | appended to a previously | | CENTER - | | | | preliminary verified | | LABORATORY | | | | report. | | | | + + + + + + | Alkaline | 69Comment: This is an | 40 - 110 U/L | [facility] | | | Phosphatase | appended report. These | | [facility] | | | | results have been | | MEDICAL | | | | appended to a previously | | CENTER - | | | | preliminary verified | | LABORATORY | | | | report. | | | | + + + + + + | Globulin | 2.5 | 2.1 - 3.8 g/dL | [facility] | | | | | | [facility] | | | | | | MEDICAL | | | | | | CENTER - | | | | | | LABORATORY | | + + + + + + | Albumin/Lamar | 1.5 | 0.8 - 2.0 | [facility] | | | bulin Ratio | | | [facility] | | | | | | MEDICAL | | | | | | CENTER - | | | | | | LABORATORY | | + + + + + + | BUN/Creatin | 9.9 | | [facility] | | | ine Ratio | | | [facility] | | | | | | MEDICAL | | | | | | CENTER - | | | | | | LABORATORY | | + + + + + + + + | Specimen | + + | Blood | + + + + + + + | Performing | Address | City/State/Zipcode | Phone Number | | Organization | | | | + + + + + | [facility] | [address] | [place] | [phone] | | [facility] | | [address] | | | - LABORATORY | | | | + + + + + CBC with Differential (08/29/2016 8:21 PM PST) + + + + + + | Component | Value | Ref Range | Performed | Pathologist | | | | | At | Signature | + + + + + + | WBC | 11.7 (H) | 4.0 - 11.0 K/uL | [facility] | | | | | | [facility] | | | | | | [facility] | | | | | | C[facility] - | | | | | | LABORATORY | | + + + + + + | RBC | 4.59 | 4.30 - 5.70 | [facility] | | | | | M/uL | [facility] | | | | | | MEDICAL | | | | | | CENTER - | | | | | | LABORATORY | | + + + + + + | Hemoglobin | 13.5 | 13.5 - 18.0 | [facility] | | | | | g/dL | [facility] | | | [facility] - | | | | | | LABORATORY | | + + + + + + | Hematocrit | 39.7 (L) | 40.0 - 51.0 % | [facility] | | | | | | [facility] | | [facility] | [facility] - | | | | | | LABORATORY | | + + + + + + | MCV | 86.7 | 83.0 - 101.0 fL | [facility] | | | | | | [facility] | | [facility] | | [facility] - | | | | | | LABORATORY | | + + + + + + | MCH | 29.3 | 28.0 - 35.0 pg | [facility] | | | | | | [facility] | | [facility] | [facility] | | | | [facility] | [facility] - | | | | | | LABORATORY | | + + + + + + | MCHC | 33.9 | 32.0 - 36.0 | [facility] | | | | | g/dL | [facility] | | [facility] | [facility] | | | | | | CENTER - | | | | | | LABORATORY | | + + + + + + | RDW-CV | 12.8 | <15.0 % | [facility] | | | | | | [facility] | | [facility] | [facility] | | [facility] | [facility] | [facility] - | | | | | | LABORATORY | | + + + + + + | Platelet | 166 | 140 - 440 K/uL | [facility] | | | Count | | | [facility] | | | | | [facility] | | | | | | CENTER - | | | | | | LABORATORY | | + + + + + + | MPV | 10.1 | fL | [facility] | | | | | | [facility] | | [facility] | [facility] | | | | | | [facility] - | | | | | | LABORATORY | | + + + + + + | % | 80.0 | 45.0 - 82.0 % | [facility] | | | Neutrophils | | | [facility] | | [facility] | [facility] | [facility] | | | | | | CENTER - | | | | | | LABORATORY | | + + + + + + | % | 9.3 (L) | 20.0 - 45.0 % | [facility] | | | Lymphocytes | | | [facility] | | [facility] | | [facility] | | | | | | CENTER - | | | | | | LABORATORY | | + + + + + + | % Monocytes | 9.6 | 4.0 - 12.0 % | [facility] | | | | | | [facility] | [facility] | [facility] | | | | | | [facility] - | | | | | | LABORATORY | | + + + + + + | % | 0.6 | 0.0 - 5.0 % | [facility] | | | Eosinophils | | | [facility] | | | | | | [facility] | | | | | | CENTER - | | | | | | LABORATORY | | + + + + + + | % Basophils | 0.5 | 0.0 - 1.0 % | [facility] | | | | | | [facility] | | [facility] | [facility] | | | | | | [facility] - | | | | | | LABORATORY | | + + + + + + | Absolute | 9.30 (H) | 1.80 - 8.50 | [facility] | | | Neutrophils | | K/uL | [facility] | | | | | [facility] | | | | | | CENTER - | | | | | | LABORATORY | | + + + + + + | Absolute | 1.10 | 0.60 - 3.20 | [facility] | | | Lymphocytes | | K/uL | [facility] | | [facility] | [facility] | | | | | | [facility]ENTER - | | | | | | LABORATORY | | + + + + + + | Absolute | 1.10 (H) | 0.00 - 1.00 | [facility] | | | Monocytes | | K/uL | [facility] | | | [facility] | | [facility] | | | | | | CENTER - | | | | | | LABORATORY | | + + + + + + | Absolute | 0.10 | 0.00 - 0.40 | [facility] | | | Eosinophils | | K/uL | [facility] | | | | | | [facility] | | | | | | CENTER - | | | | | | LABORATORY | | + + + + + + | Absolute | 0.10 | 0.00 - 0.10 | [facility] | | | Basophils | | K/uL | [facility] | | | | | | [facility] | | | | | | CENTER - | | | | | | LABORATORY | | + + + + + + + + | Specimen | + + | Blood | + + + + + + + | Performing | Address | City/State/Zipcode | Phone Number | | Organization | | | | + + + + + | [facility] | [address] | [place] | [phone] | | [facility] | | [address] | | | - LABORATORY | | | | + + + + + LABS - EXTERNAL SCAN (08/29/2016 12:00 AM PST) + + + | Narrative | Performed At | + + + | Ordered by an | | | unspecified provider. | | + + + IMAGING REPORT - EXTERNAL SCAN (08/29/2016 12:00 AM PST) + + + | Narrative | Performed At | + + + | Ordered by an | | | unspecified provider. | | + + + IMAGING REPORT - EXTERNAL SCAN (08/29/2016 12:00 AM PST) + + + | Narrative | Performed At | + + + | Ordered by an | | | unspecified provider. | | + + + ECG - EXTERNAL SCAN (08/29/2016 12:00 AM PST) + + + | Narrative | Performed At | + + + | Ordered by an | | | unspecified provider. | | + + + documented in this encounter Visit Diagnoses + + | Diagnosis | + + | Fracture of left hip, closed, initial encounter (HCC) | + + documented in this encounter Administered Medications + +--------+ +--------+------+ + | Medication Order | MAR | Action | Dose | Rate | Site | | | Action | Date | | | | + +--------+ +--------+------+ + | bupivacaine 0.5%-EPINEPHrine | Given | 08/30/20 | 20 mLs | | Surgical | | 1:200,000 injection PRN, | | 16 8:30 | | | Site | | Starting 08/30/16 at 0830, | | AM PST | | | | | Intra-op | | | | | | + +--------+ +--------+------+ + +---+---+ | | | +---+---+ documented in this encounter"
--- OUTSIDE RECORDS SUMMARY | ~2019-09-08 | XMS | Encounter Summary ---
Demographics + + + | Address | [address] | | | [place] [address] | + + + | Home Phone | | + + + | Preferred Language | Unknown | + + + | Marital Status | | + + + | Methodist Affiliation | Unknown | + + + | Race | Unknown | + + + | Ethnic Group | Unknown | + + + Author + + + | Author | [facility] | | | and [place] | + + + | Organization | [facility] | | | [...] Team Providers + +------+ + | Care First Press Operator Name | Role | Phone | + [...] + + | 08/30/ | Surgery | [facility] | Tree Freitas | [facility] | | 2016 | | MED CTR OR [facility]TRA OP | J, DO [address] | FEM[facility]AL [facility]OCHANTERIC | | | | [address] | [address] [place], [place] | NAIL LEFT | | | | [place], [place] | [address] | | | | | [address] | [phone] | | | | | [phone] | | | +--------+---------+ + + + [...] Physician Discharge Summary Patient ID: Krish Cornelius [id number] y.o. 1945 Admit date: 08/29/2016 Discharge date and time: No discharge date for patient encounter. Admitting Physician: Tree Freitas DO Discharge Physician: same Admission Diagnoses: Acute pain [R52] Fall, initial encounter [W19.XXXA] Fracture of left hip, closed, initial encounter ([facility]) [S72.002A] Other closed fracture of shaft of left femur, initial encounter ([facility]) [S72.392A] Discharge Diagnoses: subtrochanteric fracture left femur [...] you were given in the hospital. Wear xovc46eosrfp day f or3 to 4week(s). Make arrangements to have your raoul nxveemc2ztsyl after surgery. The raoul were used to [...] your doc tor says it s OK. Shhr1oad(s) after your surgery to begin showering. Then [...] hip joint. Use an elevated toilet seat vkk0cyhm(s)after surgery. Use pillows between your legs when [...] swelling of your calf or leg Fever uljze084.4F (38.0C) or shaking chills Excessive swelling, increased redness, or any drainage from the incision Swelling, tenderness, or cramps in your leg 4432-8320 [employer]. [address] [place] [address]. All righ ts reserved. This information is [...] performed and electronically signed by Wood Fernandes Ship Mate 08/29 21:02 Reviewed by Fauzia Marin PHARMD [...] [address] | [place] | [phone] | | [facility] | | [address] | | | - LABORATORY | | [...] + | [facility] | [address] | [place], [place] | [phone] | | [facility] | | [address] | | | - LABORATORY | | [...] | | | | COTY HOOPER MD ([id number]) | | | | | | on [...] [address] | [place] | [phone] | | [facility] | | [address] | | | - LABORATORY | | [...] | mL/min/1.73m2 | [facility] | | | BELARUSIAN | RATE,ESTIMATED | | MEDICAL | | | | mL/min/1.50d1Krop than | | CENTER - | | [...] [address] | [place] | [phone] | | [facility] | | [address] | | | - LABORATORY | | [...] [address] | [place] | [phone] | | [facility] | | [address] | | | - LABORATORY | | [...]
--- OUTSIDE RECORDS SUMMARY | ~2019-09-08 | XMS | Encounter Summary ---
Demographics + + + | Address | [address] | | | [place] [address] | + + + | Home Phone | | + + + | Preferred Language | Unknown | + + + | Marital Status | | + + + | Yarsani Affiliation | Unknown | + + + | Race | Unknown | + + + | Ethnic Group | Unknown | + + + Author + + + | Author | [facility] | | | and [place] | + + + | Organization | [facility] | | | [...] Team Providers + +------+ + | Care Rn Night Name | Role | Phone | + [...] | +--------+ + + + + | 08/29/ | Hospital | [facility] | Tree Sol | Fall, initial | | 2016 - | Encounter | MED CTR SURGICAL | MD Pako [address] | encounter (Primary | | | | [address] [place] | [address] [place] | Dx); Acute pain; | | 09/01/ | | [place] [address] | [place] [address] | Other closed | | 2016 | | [phone] | [phone] | fracture of shaft of | | | | | | left femur, initial | | | | | Davin Abdul, | encounter (HCC) | | | | | MD [address] | | | | | | [facility] [place] | | | | | | [place] [address] | | | | | | [phone] | | | | | | | | | | | | Tree Freitas, | | | | | | DO [address] | | | | | | [place], [place] | | | | | | [address] | | | | | | [phone] | | | | | | | | +--------+ + + + + Social History + +-------+ [...] Physician Discharge Summary Patient ID: Krish Cornelius [id number] y.o. 1945 Admit date: 08/29/2016 Discharge date and time: No discharge date for patient encounter. Admitting Physician: Tree Freitas DO Discharge Physician: same Admission Diagnoses: Acute pain [R52] Fall, initial encounter [W19.XXXA] Fracture of left hip, closed, initial encounter ([facility]) [S72.002A] Other closed fracture of shaft of left femur, initial encounter ([facility]) [S72.392A] Discharge Diagnoses: subtrochanteric fracture left femur [...] primary doctor within two weeks Signed: Tree Freiats DO 09/01/2016 7:49 documented in this encounter [...] you were given in the hospital. Wear qhsd79nikgao day f or3 to 4week(s). Make arrangements to have your raoul qcoghwo3nduvk after surgery. The raoul were used to [...] your doc tor says it s OK. Yxoa9pks(s) after your surgery to begin showering. Then [...] hip joint. Use an elevated toilet seat lou8gigr(s)after surgery. Use pillows between your legs when [...] use them to keep balance. Use a sigifreod pack, apron, or pockets to carry things. [...] swelling of your calf or leg Fever iygev160.4F (38.0C) or shaking chills Excessive swelling, increased redness, or any drainage from the incision Swelling, tenderness, or cramps in your leg 4134-6739 [employer]. [address] [place] [address]. All righ ts reserved. This information is [...] PSTFormatting of this note might be diffe renestiven from the original. Subjective: Post-Operative Day: 1 [...] Medication review performed and electronically signed by Claudia Barron 08/29 21:02 Reviewed by Fauzia Marin PHARMD [...] | | [employer] | | | [facility] | | [...] + + | [facility] | [address] | [place] | [phone] | | [facility] | | [address] | | | - LABORATORY | | [...] | | | | | g/dL | [facility] | | | | | | [...] ST. | [address] | [place] | [phone] | | [facility] | | [address] | | | - LABORATORY | | [...] | Procedure Note | + + | Michael Melendez Results In - 08/30/2016 11:02 AM PST [...] INTERPRETAT | Normal sinus rhythmLeft | | [facility] | | | ION TEXT | anterior fascicular | | | | | | blockAbnormal ECGNo | | | | | | previous ECGs | | | | | | availableConfirmed by | | | | | | COTY HOOPER MD ([id number]) | | | | | | on [...] [address] | [place] | [phone] | | [facility] | | [address] | | | - LABORATORY | | [...] 11 | 7 - 18 mg/dL | [facility] | | | | | | [facility] | | | | | | MEDICAL | | | | | | CENTER - | | | | | | LABORATORY | | + + + + + + | Creatinine | 1.11 | 0.60 - 1.30 | [facility] | | | | | mg/dL | [facility] | | | | | | MEDICAL | | | | | | CENTER - | | | | | | LABORATORY | | + + + + + + | eGFR if not | >60Comment: GLOMERULAR | >=60 | [facility] | | | | FILTRATION | mL/min/1.73m2 | [facility] | | | MALDIVIAN | RATE,ESTIMATED | | MEDICAL | | | | mL/min/1.81x7Lsuq than | | CENTER - | | [...] | | | | mg/dL | [facility] | | | | [...] | | | Protein | | | [facility] | | | | | | MEDICAL | | | | | | CENTER - | | | | | | LABORATORY | | + + + + + + | AST | 23Comment: This is an | 10 - 42 U/L | [facility] | | | | appended report. These | | [facility] | | | | results have [...] + + + + + | [facility] | [address] | [place] | [phone] | | [facility] | | [address] | | | - LABORATORY | | [...] (H) | 4.0 - 11.0 K/uL | [facility] | | | | | [...] | | | | | g/dL | [facility] | | | | | | [...] | | Lymphocytes | | K/uL | [facility] | | | | | | MEDICAL | | | | | | CENTER - | | | | | | LABORATORY | | + + + + + + | Absolute | 1.10 (H) | 0.00 - 1.00 | [facility] | | | Monocytes | | K/uL | [facility] | | | | | | MEDICAL | | | | | | CENTER - | | | | | | LABORATORY | | + + + + + + | Absolute | 0.10 | 0.00 - 0.40 | [facility] | | | Eosinophils | | K/uL | [facility] | | | | | | MEDICAL | | | | | | CENTER - | | | | | | LABORATORY | | + + + + + + | Absolute | 0.10 | 0.00 - 0.10 | [facility] | | | Basophils | | K/uL | [facility] | | | | [...] + + | [facility] | [address] | [place] | [phone] | | [facility] | | [address] | | | - LABORATORY | | [...] + | Diagnosis | + + | Fall, initial encounter - Primary | + + | Acute pain Other acute pain | + + | Other closed fracture of shaft of left femur, initial encounter (HCC) | + + documented in this encounter Administered Medications + +--------+ +--------+------+------+ | Medication Order | MAR | Action | Dose | Rate | Site | | | Action | Date | | | | + +--------+ +--------+------+------+ | acetaminophen (TYLENOL) tablet | Given | 09/01/20 | 975 mg | | | | 975 mg 975 mg (rounded from | | 16 6:52 | | | | | 1,000 mg), Oral, EVERY 8 HOURS (3 | | AM PST | | | | | times per day), First dose on | | | | | | | 08/29/16 at 2200 | | | | | | + +--------+ +--------+------+------+ +-------+ +--------+---+---+ | Given | 08/31/20 | 975 mg | | | | | 16 9:39 | | | | | | PM PST | | | | +-------+ +--------+---+---+ | Given | 08/31/20 | 975 mg | | | | | 16 3:47 | | | | | | PM PST | | | | +-------+ +--------+---+---+ +---+---+ | | | +---+---+ + +---------+ +-----+-------+---+ | ceFAZolin (ANCEF, KEFZOL) 2 g | New Bag | 08/30/20 | 2 g | 100 | | | in sodium chloride 0.9% 50 mL | | 16 10:27 | | mL/hr | | | IVPB 2 g, Intravenous, | | PM PST | | | | | Administer over 30 Minutes, EVERY | | | | | | | 8 HOURS INTERVAL, First dose on | | | | | | | 08/30/16 at 1400, For 2 | | | | | | | doses, Start 8 hours after | | | | | | | previous dose. Last dose to be | | | | | | | given within 24 hours of surgery | | | | | | | end time., Post-op/Phase II, | | | | | | | Indications: Surgical Prophylaxis | | | | | | + +---------+ +-----+-------+---+ +---------+ +-----+-------+---+ | New Bag | 08/30/20 | 2 g | 100 | | | | 16 2:05 | | mL/hr | | | | PM PST | | | | +---------+ +-----+-------+---+ +---+---+ | | | +---+---+ + +---------+ +---+-------+---+ | dextrose 5% and sodium chloride | New Bag | 08/30/20 | | 100 | | | 0.45% (D5 1/2 NS) infusion at | | 16 6:41 | | mL/hr | | | 100 mL/hr, Intravenous, | | AM PST | | | | | CONTINUOUS, Starting 08/29/16 | | | | | | | at 2020 | | | | | | + +---------+ +---+-------+---+ +---------+ +--------+-------+---+ | New Bag | 08/29/20 | 1,000 | 100 | | | | 16 8:29 | mLs | mL/hr | | | | PM PST | | | | +---------+ +--------+-------+---+ +---+---+ | | | +---+---+ + +-------+ +-------+---+ + | enoxaparin (LOVENOX) 30 mg/0.3 | Given | 09/01/20 | 30 mg | | Abdomen- | | mL injection 30 mg 30 mg, | | 16 8:58 | | | LLQ | | Subcutaneous, EVERY 12 HOURS (2 | | AM PST | | | | | times per day), First dose on Mon | | | | | | | 08/31/16 at 0900, Give first | | | | | | | dose within 20 hours of surgery | | | | | | | end time. Nursing/Pharmacy to | | | | | | | retime first dose to 1900 for | | | | | | | surgeries ending between 2200 and | | | | | | | 0900., Post-op/Phase II | | | | | | + +-------+ +-------+---+ + +-------+ +-------+---+ + | Given | 08/31/20 | 30 mg | | Abdomen- | | | 16 9:39 | | | RUQ | | | PM PST | | | | +-------+ +-------+---+ + | Given | 08/31/20 | 30 mg | | Abdomen- | | | 16 8:59 | | | LLQ | | | AM PST | | | | +-------+ +-------+---+ + +---+---+ | | | +---+---+ + +-------+ +-------+---+---+ | famotidine (PEPCID) injection | Given | 09/01/20 | 20 mg | | | | 20 mg 20 mg, Intravenous, 2 | | 16 8:58 | | | | | TIMES DAILY, First dose on Sun | | AM PST | | | | | 08/30/16 at 1400, Prior to | | | | | | | administration, prepare a 20 mg | | | | | | | dose by diluting 2 mL of | | | | | | | famotidine 10 mg/mL to 10 mL with | | | | | | | normal saline., Post-op/Phase II | | | | | | + +-------+ +-------+---+---+ +-------+ +-------+---+---+ | Given | 08/31/20 | 20 mg | | | | | 16 9:39 | | | | | | PM PST | | | | +-------+ +-------+---+---+ | Given | 08/31/20 | 20 mg | | | | | 16 8:59 | | | | | | AM PST | | | | +-------+ +-------+---+---+ +---+---+ | | | +---+---+ + +-------+ +--------+---+---+ | gabapentin (NEURONTIN) capsule | Given | 09/01/20 | 100 mg | | | | 100 mg 100 mg, Oral, 3 TIMES | | 16 8:57 | | | | | DAILY, First dose on 08/30/16 | | AM PST | | | | | at 1400, For 3 days, Hold for | | | | | | | over-sedation, dizziness or | | | | | | | visual disturbance and contact | | | | | | | MD., Post-op/Phase II | | | | | | + +-------+ +--------+---+---+ +-------+ +--------+---+---+ | Given | 08/31/20 | 100 mg | | | | | 16 9:39 | | | | | | PM PST | | | | +-------+ +--------+---+---+ | Given | 08/31/20 | 100 mg | | | | | 16 3:48 | | | | | | PM PST | | | | +-------+ +--------+---+---+ +---+---+ | | | +---+---+ + +-------+ +--------+---+ + | heparin 5,000 units/mL | Given | 08/29/20 | 5,000 | | Abdomen- | | injection 5,000 Units 5,000 | | 16 10:33 | Units | | RUQ | | Units, Subcutaneous, ONCE, Sat | | PM PST | | | | | 08/29/16 at 2150, For 1 dose | | | | | | + +-------+ +--------+---+ + +---+---+ | | | +---+---+ + +-------+ +-------+---+---+ | hydroCHLOROthiazide tablet 25 | Given | 09/01/20 | 25 mg | | | | mg 25 mg, Oral, DAILY, First | | 16 8:57 | | | | | dose on 08/30/16 at 0900 | | AM PST | | | | + +-------+ +-------+---+---+ +---+---+ | | | +---+---+ + +-------+ +--------+---+---+ | HYDROmorphone (DILAUDID) | Given | 08/29/20 | 0.5 mg | | | | injection 0.5 mg 0.5 mg, | | 16 8:25 | | | | | Intravenous, ONCE, 08/29/16 | | PM PST | | | | | at 2020, For 1 dose | | | | | | + +-------+ +--------+---+---+ +---+---+ | | | +---+---+ + +---------+ +---+ +---+ | lactated ringers (LR) infusion | New Bag | 08/31/20 | | 50 mL/hr | | | at 100 mL/hr, Intravenous, | | 16 1:48 | | | | | CONTINUOUS, Starting 08/30/16 | | AM PST | | | | | at 1400, Post-op/Phase II | | | | | | + +---------+ +---+ +---+ +---------+ +--------+-------+---+ | New Bag | 08/30/20 | 1,000 | 100 | | | | 16 2:05 | mLs | mL/hr | | | | PM PST | | | | +---------+ +--------+-------+---+ +---+---+ | | | +---+---+ + +-------+ +-------+---+---+ | oxyCODONE (ROXICODONE) tablet | Given | 08/29/20 | 20 mg | | | | 20 mg 20 mg, Oral, ONCE, Sat | | 16 10:33 | | | | | 08/29/16 at 2155, For 1 dose | | PM PST | | | | + +-------+ +-------+---+---+ +---+---+ | | | +---+---+ + +-------+ +-------+---+---+ | oxyCODONE (ROXICODONE) tablet | Given | 09/01/20 | 10 mg | | | | 5-10 mg 5-10 mg, Oral, EVERY 3 | | 16 8:57 | | | | | HOURS PRN, Pain, Starting Sun | | AM PST | | | | | 08/30/16 at 1344, First dose must | | | | | | | be the lowest dose, can titrate | | | | | | | to effective dose by repeat of | | | | | | | lowest dose every 60 minutes prn | | | | | | | pain, may not exceed maximum dose | | | | | | | ordered per interval. Use Pasero | | | | | | | Sedation Scale., Post-op/Phase | | | | | | | II | | | | | | + +-------+ +-------+---+---+ +-------+ +-------+---+---+ | Given | 08/31/20 | 10 mg | | | | | 16 5:21 | | | | | | PM PST | | | | +-------+ +-------+---+---+ | Given | 08/31/20 | 10 mg | | | | | 16 1:14 | | | | | | PM PST | | | | +-------+ +-------+---+---+ +---+---+ | | | +---+---+ + +-------+ +------+---+---+ | polyethylene glycol (MIRALAX) | Given | 09/01/20 | 17 g | | | | powder 17 g 17 g, Oral, DAILY | | 16 9:06 | | | | | PRN, Constipation, Starting Sun | | AM PST | | | | | 08/30/16 at 1344, If docusate and | | | | | | | senna ineffective or not | | | | | | | ordered, Post-op/Phase II | | | | | | + +-------+ +------+---+---+ +---+---+ | | | +---+---+ documented in this encounter"
--- OUTSIDE RECORDS SUMMARY | ~2019-09-08 | XMS | Encounter Summary ---
Demographics + + + | Address | [address] | | | [place] [address] | + + + | Home Phone | | + + + | Preferred Language | Unknown | + + + | Marital Status | | + + + | Tenriism Affiliation | Unknown | + + + | Race | Unknown | + + + | Ethnic Group | Unknown | + + + Author + + + | Author | [facility] | | | and [place] | + + + | Organization | [facility] | | | and [...] Team Providers + +------+ + | Care Event Planning Intern Name | Role | Phone | + [...] | | | | | | | ([facility]) Other | | | | | | [...] + + | 08/30/ | Anesthesia | [facility] | Pako Glasgow MD | | | 2016 | Event | MED CTR OR INTRA OP | [address] | | | | | [address] | [place] | | | | | [place] | [address] | | | | | [address] | [phone] | | | | | [phone] | | | | | | | Krish Quispe MD | | | | | | [address] | | | | | | [place] | | | | | | [address] | | | | | | | [...] +----+---+ + + | | 0 | [place] | | | | 8 | 43-degrees | | | | 3 | | | | | 0 | | | +----+---+ + + | | 0 | Pre-Procedu | | | | 8 | ral Timeout | | | | 3 | Completed | | | | 0 | | | +----+---+ + + | | 1 | [place] off | | | | 0 | [...] 1130 by | | eral | Antecubital; uult-utr-zbeibu | Vero Rivera | Mehnaz Fajardo RN [...] by Ion | | eral | Antecubital; neyw-ady-dseloe | [facility] Rivera | Scot Jasso RN | | IV | catheter system; 18 gauge; short | TAYA Lares | | | | term use; 08/30/16; 1048 | | | +--------+ + + + | Periph | 08/29/16; 2145; Right; Wrist; | 08/29/162145 by | 09/01/16 113 by | | katherine | bvaa-xmf-chwwzl catheter system; | Vero Rivera | Mehnaz [...]
--- OUTSIDE RECORDS SUMMARY | ~2019-09-08 | XMS | Encounter Summary ---
Demographics + + + | Address | [address] | | | [place] [address] | + + + | Home Phone | | + + + | Preferred Language | Unknown | + + + | Marital Status | | + + + | Jain Affiliation | Unknown | + + + | Race | Unknown | + + + | Ethnic Group | Unknown | + + + Author + + + | Author | [facility] | | | and [place] | + + + | Organization | [facility] | | | [...] Team Providers + +------+ + | Care Fisheries Biologist Name | Role | Phone | + [...] + + | 08/29/ | Hospital | [facility] | Tree Sol | Fall, initial | | 2016 - | Encounter | [facility] | MD Pako [address] | encounter (Primary | | | | [address] [place] | [address] [place] | Dx); Acute pain; | | 09/01/ | | [place] [address] | [place] [address] | Other closed | | 2016 | | [phone] | [phone] | fracture of shaft of | | | | | | left femur, initial | | | | | Davin Abdul, | encounter (HCC) | | | | | MD [address] | | | | | | [facility] [place] | | | | | | [place] [address] | | | | | | [phone] | | | | | | | | | | | | Tree Freitas, | | | | | | DO [address] | | | | | | [place], [place] | | | | | | [address] | | | | | | [phone] | | | | | | | [...] Physician Discharge Summary Patient ID: Krish [id number] y.o. 1945 Admit date: 08/29/2016 Discharge date and time: No discharge date for patient encounter. Admitting Physician: Tree Freitas DO Discharge Physician: same Admission Diagnoses: Acute pain [R52] Fall, initial encounter [W19.XXXA] Fracture of left hip, closed, initial encounter ([facility]) [S72.002A] Other closed fracture of shaft of left femur, initial encounter ([facility]) [S72.392A] Discharge Diagnoses: subtrochanteric fracture left femur [...] you were given in the hospital. Wear ehta61radejz day f or3 to 4week(s). Make arrangements to have your raoul cyqzgbp9ryuko after surgery. The raoul were used to [...] your doc tor says it s OK. Iuzw2olk(s) after your surgery to begin showering. Then [...] hip joint. Use an elevated toilet seat yhr9vvyu(s)after surgery. Use pillows between your legs when [...] swelling of your calf or leg Fever fingh621.4F (38.0C) or shaking chills Excessive swelling, increased redness, or any drainage from the incision Swelling, tenderness, or cramps in your leg [id number] [employer] [address] [place] [address]. All righ ts reserved. This information is [...] + | [facility] | [address] | [place] | [phone] | | [facility] | | [address] | | | - LABORATORY | | [...] ST. | [address] | [place] | [phone] | | [facility] | | [address] | | | - LABORATORY | | [...] | | | | COTY HOOPER MD ([id number]) | | | | | | on [...] [address] | [place] | [phone] | | [facility] | | [address] | | | - LABORATORY | | [...] | 1.11 | 0.60 - 1.30 | [facility] | | | | | mg/dL | [facility] | | | | | | MEDICAL | | | | | | CENTER - | | | | | | LABORATORY | | + + + + + + | eGFR if not | >60Comment: GLOMERULAR | >=60 | [facility] | | | | FILTRATION | mL/min/1.73m2 | [facility] | | | GAMBIAN | RATE,ESTIMATED | | MEDICAL | | | | mL/min/1.93g6Swuw than | | CENTER - | | [...] [address] | [place] | [phone] | | [facility] | | [address] | | | - LABORATORY | | [...] [address] | [place] | [phone] | | [facility] | | [address] | | | - LABORATORY | | [...]
--- OUTSIDE RECORDS SUMMARY | ~2019-09-08 | XMS | Clinical Summary ---
Demographics + + + | Address | [address] | | | [place] [address] | + + + | Home Phone | | + + + | Preferred Language | Unknown | + + + | Marital Status | | + + + | Rastafari Affiliation | Unknown | + + + | Race | Unknown | + + + | Ethnic Group | Unknown | + + + Author + + + | Author | [facility] | | | and [place] | + + + | Organization | [facility] | | | and [...] Team Providers + +------+ + | Care Spun Paste Machine Operator Name | Role | Phone | [...] | | 04.005 | | 5x42mm - [id number]: | | Hip | SYNTHES - | | | .532 / | | Qty: 1 on 08/30/2016 by | | | SYNT | | | / | | Tree Freitas DO at [facility] | | | | | | | | [facility] | | | | | | | | [facility] | | | | | | | + +-------+--------+ +--------+--------+--------+ | Nail Fem Tfna St 130d [id number] | | Left: | [facility] DEPUY | | 07/20/ | 04.037 | | L - [id number]: Qty: | | Hip | SYNTHES - | | 2025 | .261S | | 1 on 08/30/2016 by Zena, | | | SYNT | | | / | | Tree Rivera DO at [facility] | | | | | | /[id number] | | [facility] | | | | | | 20 | | CENTER | | | | | | | + +-------+--------+ +--------+--------+--------+ | Imp Blade Hlcl Tfna 110mm | | Left: | [facility] DEPUY | | 03/19/ | 04.038 | | Strl - [id number]: | | Hip | SYNTHES - | | 2025 | .310S | | Qty: 1 on 08/30/2016 by | | | SYNT | | | / | | Tree Freitas DO at [facility] | | | | | | /[id number] | | [place] | | | | | | [address] | | [facility] | | | | | | [...] +--------+ +---------+--------+ | MEDICARE | MEDICA | [id number] | 04/20/20 | [phone] | | Medica [...] ened[place] | | | 8 (Home) | [id number] | + +--------+ +--------+ + + Advance Directives + + + + + | Type | Date Recorded | Patient | Explanation | | | | Brake Repairer | | + + + + + | Power of | | | | | Mask Designer | | | | + + + [...]
[2019-09-08] MEDS ORDERED: NORVASC5 MG PO (07:42)
[2019-09-08] MEDS ORDERED: ASPIR 8181 MG PO (07:42)
[2019-09-08] MEDS ORDERED: CYCLOBENZAPRINE10 MG PO (08:32)
== END 2019-09-08 08:51 | disposition home or self-care (01) ==
LOC: ED 07:27
DX: M62.830 Muscle spasm of back (principal); W19.XXXA Unspecified fall, initial encounter; Z86.73 Personal history of transient ischemic attack (TIA), and cerebral infarction without residual deficits; F17.200 Nicotine dependence, unspecified, uncomplicated; Z79.899 Other long term (current) drug therapy; Z79.82 Long term (current) use of aspirin
CPT/HCPCS: 71046; 72070; 96372; 99283-25; J1885